=== PATIENT | female | born 1990 | race Caucasian/White ===

== ENCOUNTER 2018-10-26 20:38 | Outpatient (REF) | payer OTHER, SELFPAY ==
[2018-10-26 21:17] LABS: Abs Immature Grans 0.02 k/cumm (0.0-0.09); Absolute Basophil Count 0.03 k/cumm (0.0-0.2); Absolute Eosinophil Count 0.07 k/cumm (0.0-0.7); Absolute Lymphocyte Count 2.06 k/cumm (1.2-3.4); Absolute Monocyte Count 0.59 k/cumm (0.11-0.7); Absolute Neutrophil Count 4.94 k/cumm (1.2-6.7); Basophils % 0.4; Eosinophils % 0.9; HCT 39.8 % (36.0-46.0); HGB 12.9 g/dL (12.0-15.5); Immature Grans % 0.3; Lymphocytes % 26.7; Mean Corp. HGB Concentration 32.4 g/dL (32.0-36.0); Mean Corpuscular Hemoglobin 30.8 pg (27.0-33.0); Mean Platelet Volume 12.5 fL (8.0-11.0); Monocytes % 7.7; Platelet Count 329 x1000/uL (130-400); RBC 4.19 m/cumm (4.00-5.20); White Blood Cell Count 7.71 k/cumm (4.4-10.8)
[2018-10-26 21:41] LABS: TSH (W/Ref FT4) 0.84 uIU/mL (0.358-3.74)
[2018-10-28 10:06] LABS: IgA 217 mg/dL (85-499)
[2018-10-28 12:56] LABS: Lyme Ab w Rflx to Lyme Confirm Negative
[2018-10-28 17:01] LABS: Tissue Transglutaminase Ab IgA <1.2 U/mL
[2018-10-28 20:11] LABS: Anaplasma phagocytophilum Negative (Negative); B. miyamotoi PCR Negative (Negative); Babesia divergens/MO-1 Negative (Negative); Babesia duncani Negative (Negative); Babesia microti Negative (Negative); Ehrlichia chaffeensis Negative (Negative); Ehrlichia ewingii/canis Negative (Negative); Ehrlichia muris eauclairensis Negative (Negative)
== END 2018-10-26 20:58 ==
LOC: NCHCN 20:38
PROVIDERS: PCP Internal Medicine; Visit Provider Nurse Practitioner Family
DX: R53.83 Other fatigue (principal); R19.7 Diarrhea, unspecified
CPT/HCPCS: 82784; 83516; 84443; 85025; 86618; 87798

== ENCOUNTER 2019-01-30 09:24 | Outpatient (CLI) | payer OTHER, SELFPAY ==
--- NOTE | 2019-01-30 09:18 | DI.RAD_ITS ---
SYMPTOM/DIAGNOSIS: LT KNEE PAIN LEFT KNEE: The joint spaces are well maintained. No joint effusion is seen. IMPRESSION: Negative left knee.
== END 2019-01-30 09:44 ==
PROVIDERS: PCP Nurse Practitioner Family; Visit Provider Student in an Organized Health Care Education/Training Program
DX: M23.92 Unspecified internal derangement of left knee (principal); M25.562 Pain in left knee
CPT/HCPCS: 73564

== ENCOUNTER 2020-08-07 16:16 | Emergency (ER) | payer OTHER, SELFPAY ==
[2020-08-07 16:22] VITALS: PULSE 90; RESP 18; TEMP 36.6; O2SAT 99
--- NOTE | 2020-08-07 16:45 | DI.RAD_ITS ---
EXAM: XR ANKLE RT COMPLETE CLINICAL HISTORY: call from ladder. TECHNIQUE: 2D digital imaging was performed. COMPARISON: No exams were available for comparison FINDINGS: BONES: No acute fracture is present. No bony destructive lesion is seen. JOINTS: The ankle mortise is normally aligned. SOFT TISSUE: Normal. IMPRESSION: Unremarkable radiographs of the right ankle. DATA REPOSITORY: RADIATION DOSE DELIVERED:
--- NOTE | 2020-08-07 16:45 | DI.RAD_ITS ---
EXAM: XR HEEL RT OS CALCIS and XR foot RT complete CLINICAL HISTORY: trauma, fall from ladder. TECHNIQUE: 2D digital imaging was performed. COMPARISON: CR,XR XR FOOT RT COMPLETE from 08/07/2020 CR,XR XR ANKLE RT COMPLETE from 08/07/2020 FINDINGS: BONES: No acute fracture is present. No bony destructive lesion is seen. There is a tiny plantar izzy caneal spur. JOINTS: No dislocation present. SOFT TISSUE: Normal. IMPRESSION: No acute fracture or dislocation. DATA REPOSITORY: RADIATION DOSE DELIVERED:
--- NOTE | 2020-08-07 16:48 | ED.GENADUL_ITS ---
Discharge Plan Disposition Patient Disposition: HOME Condition: Stable Discharge Details Chief Complaint: Orthopedic Clinical Impression: Contusion, Right ankle sprain Primary Care Provider: Cole Cooper ED Provider: Ness Skelton Home Meds and New Rx's Prescriptions: No Action melatonin-pyridoxine (vit B6) 1 TAB tablet 1 tab PRN PRNRF: 0 Discharge Instructions Instructions: Ankle Sprain (ED), Contusion in Adults (ED) Additional Instructions: Julio C wrap to right foot ankle for comfort and support Use crutches for weightbearing as tolerated Can use acetaminophen and/or ibuprofen as directed for pain Elevate and apply ice 20 minutes 4-5 times daily for the next 1 to 2 days then can use heat or ice Stand Alone Forms: Work Release Referrals: Parris Fox NP [NURSE PRACTITIONER] - (Call to schedule appointment with occupational medicine for work clearance) Medical Decision Making Physical exam is unremarkable except right ankle/foot. xray obtained of right foot ankle and calcaneous and are unremarkable. offered NSAIDS but declined. julio c wrap, crutches for weight bear as tolerated. f/u with occupational medicine Medical Records Medical records reviewed: Yes I reviewed the patient's medical records. Medical records narrative: xray right ankle: FINDINGS: Bones/joints: Normal. Soft tissues: Normal. IMPRESSION: No acute findings. xray calcaneous FINDINGS: Bones/joints: Osseous anatomic alignment is well preserved. No acutely displaced fracture or dislocation. Joint spaces are well preserved. Soft tissues: There is no significant soft tissue swelling. Other findings: There is a tiny calcaneal spur present. IMPRESSION: Negative for acute skeletal pathology. xray right foot FINDINGS: Bones/joints: Osseous anatomic alignment is well preserved. No acutely displaced fracture or dislocation. Joint spaces are well preserved. Soft tissues: There is no significant soft tissue swelling. Other findings: There is a tiny calcaneal spur present. IMPRESSION: Negative for acute skeletal pathology. HPI General Mode of arrival: wheelchair . Date/Time Provider Initiated Documentation: 08/07/20 16:25 . Limitations to Documentation: no limitations . Information obtained by: patient . HPI Narrative: Patient presents for evaluation to the emergency department after reported 12 foot fall from a ladder while working. She reports landing on her right leg and falling back to the ground. She denies any neck or head injury. Initially she was ambulatory but has progressively developed worsening of right heel pain. She did not take any medication prior to arrival. Again there was no other injuries sustained Related Data Home Medications Medication Instructions Recorded Confirmed melatonin-pyridoxine (vit B6) 1 tab PRN PRN 01/07/15 08/07/20 Allergies Allergy/AdvReac Type Severity Reaction Status Date / Time amoxicillin AdvReac Unverified 08/07/20 16:29 erythromycin base AdvReac Unverified 08/07/20 16:29 hydrocodone AdvReac Unverified 08/07/20 16:29 General Stated Complaint: Orthopedic TESSY: 4 Review of Systems All systems reviewed & are unremarkable except as noted in HPI and below ENT Ears, Nose, Mouth, and Throat: Denies neck pain Musculoskeletal Musculoskeletal: Denies deformity, Reports arthralgias, Reports joint swelling, Denies muscle weakness, Denies neck pain and Denies numbness Integumentary/Breasts Skin/Breast: Denies new lesions and Denies rash Neurologic Neurologic: Denies numbness PFS Social History Smoking/Tobacco Use Status: Former Tobacco Use Smoking risk assessment performed?: Yes Alcohol Intake: former Drug use: Never Substance use type: does not use Do you feel safe at home: Yes Exam Const General: cooperative, healthy appearing, comfortable and no acute distress Nutritional Appearance: average body habitus Orientation: alert, awake and oriented x3 HENMT Head: normal to inspection, normocephalic and atraumatic Mouth: oral mucosae normal Resp Effort & Inspection: normal respiratory effort Auscultation: clear to auscultation bilaterally Cardio Rate: regular rate Rhythm: regular rhythm Extrem General: normal to inspection, abnormal ROM and edema (lateral malleolus, trace, no deformity, no bruising) Course Vital Signs Vital signs: Vital Signs Temperature 36.6 C 08/07/20 16:22 Pulse 90 08/07/20 16:22 Respiratory Rate 18 08/07/20 16:22 Pulse Oximetry 99 08/07/20 16:22 Temperature 36.6 C 08/07/20 16:22 Temperature Source Temporal Artery Scan 08/07/20 16:22 Pulse 90 08/07/20 16:22 Respiratory Rate 18 08/07/20 16:22 Respiratory Effort Non-Labored 08/07/20 16:25 Blood Pressure Position Sitting 08/07/20 16:22 Pulse Oximetry 99 08/07/20 16:22 Pain Level 7 08/07/20 16:25
--- NOTE | 2020-08-07 17:39 | DI.VRAD_ITS ---
PROCEDURE INFORMATION: Exam: XR Right Foot Complete Exam date and time: 08/07/2020 5:18 PM Age: 29 years old Clinical indication: Pain; Heel; Right TECHNIQUE: Imaging protocol: XR Right foot. Views: 3 or more views. COMPARISON: No relevant prior studies available. FINDINGS: Bones/joints: Osseous anatomic alignment is well preserved. No acutely displaced fracture or dislocation. Joint spaces are well preserved. Soft tissues: There is no significant soft tissue swelling. Other findings: There is a tiny calcaneal spur present. IMPRESSION: Negative for acute skeletal pathology. Dictated and Authenticated by: Edinson Chau MD. Ordering:CRISS Arzola MD
--- NOTE | 2020-08-07 17:40 | DI.VRAD_ITS ---
PROCEDURE INFORMATION: Exam: XR Right Ankle Exam date and time: 08/07/2020 5:19 PM Age: 29 years old Clinical indication: Pain; Heel; Right TECHNIQUE: Imaging protocol: XR Right ankle. Views: 3 or more views. COMPARISON: No relevant prior studies available. FINDINGS: Bones/joints: Normal. Soft tissues: Normal. IMPRESSION: No acute findings. Dictated and Authenticated by: Edinson Chau MD. Ordering:CRISS Arzola MD
--- NOTE | 2020-08-07 17:40 | DI.VRAD_ITS ---
PROCEDURE INFORMATION: Exam: XR Right Calcaneus Exam date and time: 08/07/2020 4:50 PM Age: 29 years old Clinical indication: Pain; Heel; Right TECHNIQUE: Imaging protocol: XR of the Right calcaneus. Views: 2 or more views. COMPARISON: No relevant prior studies available. FINDINGS: Bones/joints: Osseous anatomic alignment is well preserved. No acutely displaced fracture or dislocation. Joint spaces are well preserved. Soft tissues: There is no significant soft tissue swelling. Other findings: There is a tiny calcaneal spur present. IMPRESSION: Negative for acute skeletal pathology. Dictated and Authenticated by: Edinson Chau MD. Ordering:CRISS Arzola MD
[2020-08-07 17:48] VITALS: BP 120/82; PULSE 76; RESP 18; O2SAT 100
--- NOTE | 2020-08-08 08:45 | NUR.NOTE ---
Nursing Note: 0845--Tricia called requesting a work note that states she can work if she keeps her leg elevated. Dr Mix consulted and a note was written and faxed to her at [employer].
== END 2020-08-07 18:32 | disposition home or self-care (01) ==
LOC: ER 18:47
PROVIDERS: Emergency Provider Nurse Practitioner Acute Care; PCP Nurse Practitioner Family
DX: S93.491A Sprain of other ligament of right ankle, initial encounter (principal); W11.XXXA Fall on and from ladder, initial encounter
CPT/HCPCS: 81025; 99284; 73610; 73630; 73650

== ENCOUNTER 2021-01-06 02:02 | Outpatient (CLI) | payer OTHER, SELFPAY ==
--- NOTE | 2021-01-06 07:15 | DI.MRI_ITS ---
EXAM: MR LOWER JOINT RT WO CLINICAL HISTORY: RT SUBTALAR JOINT INSTABILITY,M25.374,EVALUATE LIGAMENTOUS INJURY TECHNIQUE: Multiplanar multisequence MRI was performed without intravenous contrast. COMPARISON: CR,XR XR FOOT RT COMPLETE from 08/07/2020 CR,XR XR HEEL RT OS CALCIS from 08/07/2020 CR,XR XR ANKLE RT COMPLETE from 08/07/2020 FINDINGS: SKIN: No evidence of ulcer nor subcutaneous tract. BONES/JOINTS/SINUS TARSI: There is no evidence of fracture. There is small area of bone edema in the most lateral aspect of the talus just above the sinus tarsi. There is no intraosseous edema in the subjacent calcaneus. There is a small amount of intraosseous edema in the talar neck. There is no a bnormal intraosseous signal in the subjacent calcaneus. Small amount of increased fluid is noted in thel subtalar joint. No ganglion cyst. No abnormal intraosseous signal in the sustentacular talus o n the medial aspect of the calcaneus. Talar dome appears unremarkable. Malleoli appear unremarkable . There is no evidence of sinus tarsi ganglion cyst. There is no evidence of osseous tarsal coalition. LIGAMENTS: Anterior and posterior tibiofibular ligaments are intact. Anterior and posterior talofibular ligaments are intact. Calcaneofibular ligament appears intact. On the opposite-medial aspect of the ankle the deltoid ligament appears intact. Calcaneal navicular ligament appears intact ANTEROLATERAL GUTTER:There is no abnormal signal/abnormal tissue in this space. MUSCULOTENDINOUS STRUCTURES: Achilles tendon: Unremarkable. No evidence of tear nor tendinitis/tendinosis. Plantar fascia: Unremarkable. No evidence of tear, abnormal thickening, nor abnormal nodularity. Anterior Extensor tendons: Unremarkable. No tears or tenosynovitis. Medial Tendons: Posterior Tibialis: Unremarkable. No tear or tenosynovitis evident. Flexor Digitorum longus: Unremarkable. No tear or tenosynovitis evident. Flexor Hallicus longus: Unremarkable. No tear or tenosynovitis evident. Lateral Tendons: Peroneus longus: Unremarkable. No tear nor tenosynovitis evident. Peroneus brevis:Unremarkable. No tear nor tenosynovitis evident. OTHER FINDINGS: None. IMPRESSION: 1. Small area of intraosseous signal abnormality in the lateral aspect of the talus consistent with s ignificant bone contusion. There is no distinct dependent fracture fragment evident at this level no r elsewhere in the ankle. There is a small amount of increased fluid signal in the subtalar joint at this level but no evidence of para-articular ganglion at this level. 2. No evidence of significant tendon tears or tenosynovitis. DATA REPOSITORY:
== END 2021-01-06 02:22 ==
PROVIDERS: PCP Nurse Practitioner Family; Visit Provider Student in an Organized Health Care Education/Training Program
DX: M25.374 Other instability, right foot (principal)
CPT/HCPCS: 73721